=== PATIENT | female | born 1980 | race Two or more races ===

== ENCOUNTER 2024-11-22 04:41 | Observation (INO) | payer OTHER, SELFPAY ==
[2024-11-21 17:09] VITALS: BP 114/92
[2024-11-21 17:56] LABS: HCG, Serum Qualitative Screen Negative
[2024-11-21 18:04] LABS: ALT (SGPT) 31 U/L (0-35); AST (SGOT) 27 U/L (14-36); Albumin 4.7 g/dl (3.5-5.0); Alkaline Phosphatase 60 U/L (38-126); Blood Urea Nitrogen 11 mg/dl (7-17); Calcium 9.9 mg/dl (8.4-10.2); Carbon Dioxide 21 mmol/L (22-30); Chloride 107 mmol/L (98-107); Glucose 123 mg/dl (70-99); Potassium 4.2 mmol/L (3.5-5.1); Sodium 140 mmol/L (135-145); Total Bilirubin 0.5 mg/dl (0.2-1.3); Total Protein 7.9 g/dl (6.3-8.2); eGFR > 60.00
[2024-11-21 18:05] LABS: Lipase 44 U/L (23-300)
[2024-11-21 18:16] LABS: % Basophils 0.3 % (0-2); % Eosinophils 1.9 % (0-6); % Immature Granulocytes 0.9 % (0-0.5); % Lymphocytes 14.8 % (20.5-51.1); % Monocytes 6.1 % (1.7-9.3); Absolute Eosinophils 0.2 10^3/uL (0-0.7); Absolute Immature Granulocytes 0.1 10^3/uL (0-0.05); Absolute Lymphocytes 1.8 10^3/uL (1.2-3.4); Absolute Monocytes 0.7 10^3/uL (0.1-0.6); Hematocrit 37.9 % (37.0-47.0); Hemoglobin 12.6 g/dL (12.0-16.0); Mean Corp Hgb Conc. 33.2 g/dL (33.0-37.0); Mean Corpuscular Hgb 28.4 pg (27.0-31.0); Mean Corpuscular Volume 85.6 fL (81.0-99.0); Mean Platelet Volume 12.4 fL (7.4-10.4); Nucleated Red Blood Cells % 0 %; Platelet Count 154 10^3/uL (130-400); Red Blood Cell Count 4.43 10^6/uL (4.20-5.40); Red Cell Dist. Width 13.2 % (11.5-14.5); White Blood Cell Count 11.9 10^3/uL (4.8-10.8)
[2024-11-21 22:21] VITALS: BP 142/72; BMI 29.8
[2024-11-21 22:26] LABS: Urine Albumin 2+ (Neg - Trace); Urine Bilirubin Negative (Negative); Urine Character Clear (Clear); Urine Color Yellow; Urine Glucose Negative (Negative); Urine Ketone 3+ (Negative); Urine Leukocyte 3+ (Negative); Urine Nitrite Negative (Negative); Urine Occult Blood 4+ (Negative); Urine Specific Gravity 1.025 (<1.030); Urine Urobilinogen Negative (Neg - 1+)
[2024-11-21 22:46] LABS: Urine Squamous Cell >30 /LPF (Few)
[2024-11-21 22:47] LABS: Urine Bacteria Moderate (Negative); Urine White Cell 16-20 /HPF (0-5); Urine Yeast Few (Negative)
--- NOTE | 2024-11-21 22:52 | ED.GENMED ---
History of Present Illness
General
Chief Complaint: Abdominal Pain
Source: patient and spouse
Exam Limitations: none
Time Seen by Provider: 11/21/24 22:36
Nursing documentation reviewed up to this point in time: agreed with
History of Present Illness
History of Present Illness:
44-year-old female history of kidney stones, history ovarian cyst presents with left flank left lower abdominal pain onset a day or so ago she has had chills and nausea, vomited here no prior abdominal surgeries,
Past History
Past History
ED Past Medical History: Other (Ovarian cyst, kidney stone)
ED Past Surgical History: Negative Appendectomy
Social History
Tobacco: Non-smoker
Alcohol: None
Drug: None
Personal:
Living: with family
Employment: Employed
Review of Systems
Review of Systems
All Other Systems: Not applicable
Constitutional: Reports chills; Denies fever
EENT: Reports no symptoms
Respiratory: Reports no symptoms
Cardiac: Reports no symptoms
ABD/GI: Reports abdominal pain, nausea and vomiting
: Reports no symptoms
Musculoskeletal: Reports no symptoms
Phy Exam
Physical Exam
Physical Exam:
Physical Exam
General: 44 female looks uncomfortable
Neck: No jaundice
Heart: s1/s2 regular rate and rhythm, no murmur. equal radial pulses.
Lungs: no acute respiratory distress. clear bilaterally
Abdomen: Tender in the left flank and left lower
Neuro: alert and oriented. no focal neurological deficits
Skin: no rash
Psychiatric: well kept. interactive and cooperative
Extremities: no edema.
Course
Orders/Labs/Results
Orders:
Orders
11/21/24 17:11
Test Result ONCE
11/21/24 17:32
Complete Blood Count/With Diff Urgent
Comprehensive Metabolic Panel Urgent
HCG, Serum Qualitative Screen Urgent
Lipase Urgent
11/21/24 22:18
Urinalysis Reflex To Culture Urgent
Date Specimen was Collected: 11/21/24
Time Specimen was Collected: 21:56
Urine Microscopic Reflex Cult Urgent
Urine Culture Urgent
YESSI Source: U
Specimen Description:
Date Specimen was Collected: 11/21/24
Time Specimen was Collected: 21:56
11/21/24 22:46
CT Abd/pel Without Iv Or Oral Urgent
Comment:
Reason For Exam: lef tside dpain
0.9% Sodium Chloride 1000 ml [Nss] 1,000 ml IV BOLUS
Ketorolac [Toradol] 30 mg IV NOW STA
Ondansetron Injectable [Zofran] 4 mg IV NOW STA
11/22/24 00:41
HYDROmorphone [Dilaudid] 1 mg IV NOW STA
11/22/24 01:27
Add On- LAB Urgent
Tests Added?: urine culture
11/22/24 01:51
CefTRIAXone [Rocephin] 1,000 mg IV NOW STA
11/22/24 02:21
0.9% Sodium Chloride 500 ml [Nss] 1,000 ml IV BOLUS
11/22/24 02:22
HYDROmorphone [Dilaudid] 1 mg IV NOW STA
NSS 1000mL Bolus WIDE OPEN 0.9% Sodium Chloride 1000 ml [Nss] 1,000 ml IV BOLUS
Ondansetron Injectable [Zofran] 4 mg IV NOW STA
Abnormal Lab Results
11/21/24 11/21/24
17:32 22:18
WBC 11.9 H 10^3/uL
(4.8-10.8)
MPV 12.4 H fL
(7.4-10.4)
Abs Immat Gran (auto) 0.1 H 10^3/uL
(0-0.05)
Absolute Neuts (auto) 9.0 H 10^3/uL
(1.4-6.5)
Absolute Monos (auto) 0.7 H 10^3/uL
(0.1-0.6)
Immature Gran % 0.9 H %
(0-0.5)
Neutrophils % 76.0 H %
(42.2-75.2)
Lymphocytes % 14.8 L %
(20.5-51.1)
Carbon Dioxide 21 L mmol/L
(22-30)
Glucose 123 H mg/dl
(70-99)
Urine Ketones 3+ A
(Negative)
Ur Occult Blood Reflex 4+ A
(Negative)
Leukocyte Esterase Rfl 3+ A
(Negative)
Urine RBC 11-15 A /HPF
(0-2)
Urine WBC (Reflex) 16-20 A /HPF
(0-5)
Urine Bacteria (Reflex) Moderate A
(Negative)
Urine Yeast Few A
(Negative)
Urine Albumin (Reflex) 2+ A
(Neg - Trace)
11/21/24 17:32
11/21/24 17:32
Vital Signs
Initial and Last Documented VS:
Initial Vital Signs
Temp Pulse Resp BP Pulse Ox
97.9 F 79 16 114/92 100
11/21/24 17:09 11/21/24 17:09 11/21/24 17:09 11/21/24 17:09 11/21/24 17:09
Last Documented Vital Signs
Temp Pulse Resp BP Pulse Ox
97.9 F 82 16 127/66 100
11/21/24 17:09 11/22/24 02:16 11/22/24 02:16 11/22/24 02:16 11/22/24 02:16
MDM/Problems Addressed
Differential Diagnosis Includes:
Renal colic ovarian cyst diverticulitis
MDM/Problems Addressed:
Flank pain
*Radiology
Radiology exam reviewed: radiology read reviewed
*Pulse Oximetry
SaO2: 100
Oxygen Mode of Delivery: Room air
Patient hypoxic: no
*Critical Care Note
Total Time (30-74mins, 75-104mins- exclusive of procedures): Not Applicable
Update Note
Update Note:
1:[address] scan report noted patient smiling states she feels much better, has no pain further questioning about her potential infectious symptoms she has had no fever she believes she did have some chills earlier today, in the setting of pain
Urinalysis white count are noted looks to be contaminated specimen will start on antibiotics empirically, reviewed inpatient versus outpatient management, like to watch her here little bit longer repeat her vital signs to be sure she is not spiking
a fever patient clearly instructed to return to the ER if she spikes any fever has persistent nausea vomiting or any other concerns
2:15 AM reevaluation patient with recurrent pain at this point I believe would prudent keep her in the hospital for close monitoring trial of passage consideration for specialty consultation
ED Attending Note
-
Portions of this chart may have been created with voice recognition software.� Occasional wrong word or��sound alike� substitutions may have occurred due to the inherent limitations of voice recognition software.
Discharge Plan
Departure
Patient Disposition: Admit
Date of Disposition: 11/22/24
Time of Disposition: 02:05
Admit to: Med/Surg
Presentation/result/management discussed w/ accepting MD/DO: Hospitalist
Patient with high blood pressure during this ER visit?: No
Condition: Good
Covid-19: Not Applicable
Discharge Problem:
Kidney stone on left side
Instructions: Kidney Stones (DC)
Prescriptions:
New
amoxicillin-pot clavulanate 875-125 mg tablet
1 tab PO BID Qty: 20 0RF
oxycodone-acetaminophen [Percocet] 5-325 mg tablet
1 tab PO Q4HPRN PRN (Reason: pain) Qty: 14 0RF
ibuprofen 600 mg tablet
600 mg PO Q6H PRN (Reason: Pain) Qty: 20 0RF
Referrals:
Valeriy Goldstein MD [Active, Urology] - Next open appointment
Ar Kuo MD [Family Provider, Family Practice]
Activity Restrictions/Additional Instructions:
Drink plenty of fluids, antibiotics as prescribed
Ibuprofen every 6 hours for pain, acetaminophen or Percocet every 4 hours for pain(Do not exceed #8 in any 24-hour period as they both contain acetaminophen)
RETURN to the ER immediately if persistent pain, persistent nausea vomiting or any fevers
Interventions
Interventions:
*Risk Screen - Suicide Last Done: 11/21/24 17:11
*General Assessment Last Done: 11/21/24 22:21
*Neglect/Abuse Screening Last Done: 11/21/24 17:11
TF-Pirajj-Oymtyivwpl Assessment Last Done: 11/21/24 22:21
Discharge Date and Time
Print Language: BHUTANESE
[2024-11-21] MEDS: ZOFRAN 4 MG IV (22:54)
[2024-11-21] MEDS: TORADOL 30 MG IV (22:54)
[2024-11-21] MEDS: NSS 1000 IV (22:54)
[2024-11-21 23:00] VITALS: BP 162/83
[2024-11-22] MEDS: DILAUDID 1 MG IV ×2 (00:53→02:42)
[2024-11-22] MEDS: ROCEPHIN 1000 MG IV (02:09)
[2024-11-22 02:16] VITALS: BP 127/66
[2024-11-22] MEDS: NSS 1000 IV (02:21)
[2024-11-22] MEDS: FLUSH (NSS) 1 FLUSH IV (02:43)
[2024-11-22] MEDS: ZOFRAN 4 MG IV (02:43)
--- NOTE | 2024-11-22 03:34 | HPS.HSE ---
Family Physician
-
Family Physician: Ar Kuo
Chief Complaint
-
Abdominal pain
History of Present Illness
This is a 44-year-old female with past medical history of nephrolithiasis who presents to the emergency department with abdominal pain.
Patient reports about 2 days of abdominal discomfort that intensified over the last 24 hours with associated nausea and vomiting. She denies flank pain, fevers chills, dysuria, lightheadedness or dizziness. Patient denies any hematuria. She
denies any diarrhea.
In the Emergency Department patient was afebrile, blood pressure was 120/60 with a pulse of 80 and she was satting 100% on room air.
White count was 11.9, CBC otherwise unremarkable. Electrolytes, BUN, creatinine and LFTs all within normal limits.
CT of the abdomen pelvis showing a 3.5 mm obstructing calculus in the proximal left ureter with mild left hydronephrosis, there is also bilateral renal calculi and suspicious for cystitis
Medical History
Past Medical History
Past Medical History: Reports Other (nephrolithiasis)
Past Surgical History: Reports None
Social History
Tobacco: Non-smoker
Alcohol: None
Drug: None
Personal:
Living: With Family
Family History
Family History: Not pertinent
Allergies / Home Medications
Allergies reflects when Allergies were last updated in [email or web address].
Home Medications with original date entered in [email or web address]
Allergy/Medication List:
Allergies
Allergy/AdvReac Type Severity Reaction Status Date / Time
No Known Allergies Allergy Unverified 11/21/24 17:11
Home Medications
No Meds [No Current Medications] 11/22/24
Review of Systems
-
Constitutional: Reports No Symptoms
EENT: Reports No Symptoms
Respiratory: Reports No Symptoms
Cardiac: Reports No Symptoms
Abdomen/GI: Reports Abdominal Pain, Nausea and Vomiting
: Reports No Symptoms
Musculoskeletal: Reports No Symptoms
Skin: Reports No Symptoms
Neurological: Reports No Symptoms
Endocrine: Reports No Symptoms
Hematologic/Lymphatic: Reports No Symptoms
Psych: Reports No Symptoms
Physical Exam
Vital Signs
Vital Signs
Temp Pulse Resp BP Pulse Ox
97.9 F 82 16 127/66 100
11/21/24 17:09 11/22/24 02:16 11/22/24 02:16 11/22/24 02:16 11/22/24 02:16
Physical Exam
General: Well Developed, Well Nourished and No Apparent Distress
HEENT: NormoCephalic, Moist mucous membranes and Atraumatic
Respiratory: Clear
Cardiac: S1/S2 and Regular Rhythm; No Murmur or Rub
GI: Soft, Non Tender, Non Distended and Normal Bowel Sounds; No Organomegaly
Rectal: Deferred by Provider
Musculoskeletal: No Clubbing, No Cyanosis and No Edema
Skin: No Rash
Neuro: Nonfocal/grossly intact
Laboratory Results
-
11/21/24 17:32
11/21/24 17:32
Laboratory Results
Total Bilirubin 0.5 mg/dl (0.2-1.3) 11/21/24 17:32
AST 27 U/L (14-36) 11/21/24 17:32
ALT 31 U/L (0-35) 11/21/24 17:32
Alkaline Phosphatase 60 U/L (38-126) 11/21/24 17:32
Lipase 44 U/L (23-300) 11/21/24 17:32
Impression/Plan
-
IMPRESSION:
44-year-old female with past medical history of nephrolithiasis and prior episodes of passing kidney stones presents to the emergency department with 2 days of abdominal pain. Initially it was minimal but then intensified over the last 24 hours
with associated nausea vomiting. She denied any flank pain. She denies any dysuria. She denied having fevers or chills. UA is equivocal but likely contaminated and negative. There is some mild hydronephrosis but no significant signs of
pyelonephritis on the CT scan. She has a 3.5 mm and obstructing stone in the proximal left ureter ureter. Creatinine is normal.
PLAN:
Left-sided obstructing urolithiasis with no signs of sepsis. Likely not infected stone
[facility]
-Continue IV fluids
-Urine cultures
-Started IV ceftriaxone for now
-Tamsulosin
-Toradol
-Strain urine
-Discussed with urology, likely to pass the stone spontaneously and requires no intervention will probably be discharged with follow-up
-Urology to see patient in a.m., will keep n.p.o. for now
DVT prophylaxis�SCDs
CODE STATUS�full code
[2024-11-22] MEDS: LR 1000 IV (05:59)
[2024-11-22 06:24] LABS: Hematocrit 33.5 % (37.0-47.0); Hemoglobin 11.4 g/dL (12.0-16.0); Mean Corpuscular Hgb 29.1 pg (27.0-31.0); Mean Corpuscular Volume 85.5 fL (81.0-99.0); Mean Platelet Volume 12.1 fL (7.4-10.4); Platelet Count 173 10^3/uL (130-400); Red Blood Cell Count 3.92 10^6/uL (4.20-5.40); Red Cell Dist. Width 13.9 % (11.5-14.5); White Blood Cell Count 14.4 10^3/uL (4.8-10.8)
[2024-11-22 06:41] LABS: Blood Urea Nitrogen 17 mg/dl (7-17); Calcium 8.8 mg/dl (8.4-10.2); Carbon Dioxide 22 mmol/L (22-30); Chloride 111 mmol/L (98-107); Estimated Creatinine Clearance 94 ml/min; Glucose 117 mg/dl (70-99); Magnesium 1.7 mg/dl (1.6-2.3); Potassium 4.3 mmol/L (3.5-5.1); Sodium 142 mmol/L (135-145); eGFR > 60.00
[2024-11-22] MEDS: FLOMAX 0.4 MG PO (07:49)
[2024-11-22 07:53] VITALS: BP 102/51
--- NOTE | 2024-11-22 07:58 | W.PN.HOSP.TC ---
Today's Communication/Plan
-
Adequate pain control
Adequate hydration
Tamsulosin
Assessment / Plan
Assessment / Plan
Assessment
44-year-old female with past medical history of nephrolithiasis presents to the emergency department reporting abdominal pain, nausea/vomiting.
Plan
#Left ureteral calculus
Patient is not septic at presentation
AFVSS
White count trended up to 14.4
UA�contaminated, will repeat with reflex to culture
No dysuria, suprapubic tenderness
CT of the abdomen pelvis with evidence of a 3.5 mm obstructing calculus in the proximal left ureter with mild left hydronephrosis, there is also bilateral renal calculi and suspicious for cystitis.
Patient started on IV ceftriaxone, will transition to Cefdinir 300 mg , BID x 5 days.
Continue tamsulosin
Continue Toradol
Adequate hydration
Strain urine
Urology consulted�no intervention at this time
Patient is stable�discharge with outpatient urology follow-up, or if symptoms worsen.
Full code
Anticipated Discharge: Today
Subjective/Interval History
-
Date of Service: November 22, 2024
Patient reports mild pain in the left lumbar region. Reports no nausea/vomiting.
Objective Data
-
Labs:
Laboratory Results
11/22/24
06:12
WBC 14.4 H
Hgb 11.4 L
Hct 33.5 L
Plt Count 173
Sodium 142
Potassium 4.3
Chloride 111 H
Carbon Dioxide 22
BUN 17
Creatinine 0.8
Glucose 117 H
Calcium 8.8
Vital Signs:
Vital Signs
Temp Pulse Resp BP Pulse Ox
98.2 F 71 15 102/51 98
11/22/24 07:53 11/22/24 07:53 11/22/24 07:53 11/22/24 07:53 11/22/24 07:53
Review of Systems
-
All other systems: Reviewed and negative (Except as mentioned above)
Physical Exam
-
General: Well Developed, Well Nourished and No Apparent Distress
HEENT: Normocephalic and Atraumatic
Respiratory: Clear to Auscultation
Cardiac: Regular Rhythm and S1/S2
GI: Soft, Nontender, Nondistended and Normal Bowel Sounds
Genito-urinary: No Costovertebral Tender and Other (No suprapubic tenderness)
Skin: Warm and Dry
Neuro: Awake, Alert, Oriented and AO x 3
Psych: Calm
[2024-11-22] MEDS: TORADOL 10 MG IV (09:21)
[2024-11-22] MEDS: TYLENOL 650 MG PO (10:37)
[2024-11-22 10:55] LABS: Urine Albumin 2+ (Neg - Trace); Urine Bilirubin Negative (Negative); Urine Character Slightly Cloudy (Clear); Urine Color Amber; Urine Glucose Negative (Negative); Urine Ketone 1+ (Negative); Urine Leukocyte 1+ (Negative); Urine Nitrite Negative (Negative); Urine Occult Blood 1+ (Negative); Urine Urobilinogen Negative (Neg - 1+)
--- NOTE | 2024-11-22 11:27 | W.PN.URO.CBU ---
Today's Communication / Plan
-
give strainer please
Assessment / Plan
-
passable stone pt non toxivc no pain x 8 hours will start flomax increase fluids and home call or return if ferv child or too much pain try flomax
Diagnosis
-
Date of Service: November 22, 2024
-
Patient Diagnosis:prox 3 mm stone no fevr chills no nausea no pain rxs x 8 hours
Post Op Day:
Subjective
-
feels h-[baseline
Objective
-
Vital Signs
Temp Pulse Resp BP Pulse Ox
98.2 F 71 15 102/51 96
11/22/24 07:53 11/22/24 07:53 11/22/24 07:53 11/22/24 07:53 11/22/24 08:56
Laboratory Results
11/22/24 06:12
11/22/24 06:12
Review of Systems
-
: Flank Pain
Physical Exam
-
General - well developed, well nourished, no acute distress non toxic
Chest - clear bilaterally
Abdomen - soft, non-tender, positive bowel sounds, no CVAT, no incisional pain or distention
Genitalia - normal
Rectal - normal
Skin - warm & dry with no rash
Neuro - AOx3, no motor deficits
Extremities - no clubbing, no cyanosis, no edema
Incision - clean, dry
Dressing - clean, dry, intact
Care Review
Data Reviewed
Discussed with: Hospitalist and Nursing
CT Scan: Image Pers Reviewed
[2024-11-22 11:38] LABS: Urine Squamous Cell >30 /LPF (Few)
[2024-11-22 11:39] LABS: Urine Amorphous Seen; Urine Bacteria Moderate (Negative)
[2024-11-22 11:40] LABS: Urine Red Blood Cell 0-2 /HPF (0-2); Urine White Cell 0-2 /HPF (0-5)
[2024-11-22 11:41] LABS: Urine Urothelial Cell 0-2 /LPF (FEW)
--- NOTE | 2024-11-22 11:47 | PTCARENOTE ---
Pt had increasing pain - relieved w/ toradol and tylenol. Pt ate breakfast and tolerated well - denies n/v. Voiding w/o difficulty.
--- NOTE | 2024-11-22 13:44 | CM ---
CM reviewed chart and met with pt bedside in ED. IA completed, OBS form signed. Lives with and children in 2 story home, 2 PANFIL[address], first floor half BA, second floor BR/full bath.
Independent in ADLs, personal care, driving ans ambulation at baseline. No DME in home.
No hx VN/SNF
PCP: Ar Kuo
Pharmacy: [facility]
Discharge plan: Anticipate home, no needs
[2024-11-22 14:41] VITALS: BP 122/58
--- NOTE | 2024-11-22 14:42 | PTCARENOTE ---
Pt pain free. Ate another food tray w/o issue. Understands home care instructions
--- NOTE | 2024-11-22 17:36 | W.DCSUMMARY ---
Documented by User: Sade Chinchilla MD, Resident 11/22/24 17:46
Discharge Summary
Discharge Data
Date of Admission: 11/22/24
Date of Discharge: 11/22/24
-
Pending Results: Yes
Additional Pending Results:
Urine culture
Hospital Course
Discharging Physician : Dr. Dotson, Dr. Stuart
Disposition : Home
Principal Discharge diagnosis : Left ureteral calculus
Hospital Course : 44-year-old female with past medical history of nephrolithiasis presented to the ER reporting abdominal pain, nausea/vomiting from the past day. In the ER patient was afebrile, BP�120s/60, heart rate�80, WBC 11.9 >>14.
Electrolytes, BUN/creatinine and LFTs within normal limits. CT showed evidence of 3.5 mm obstructing calculus in the proximal left ureter with mild hydronephrosis, bilateral renal calculi. Patient was not septic at presentation, started on IV
fluids, IV ceftriaxone. Urinalysis, leuk esterase positive, no nitrates. Urology consulted, who recommended no intervention at this time. Pain adequately controlled. Patient is hemodynamically stable to be discharged home. Advised follow-up
with urology in a week/before if symptoms worsen. Discharge medications - 2-day course of cefdinir, tamsulosin for 1 week.
Important imaging findings :
CT abdomen pelvis�11/21/2024�
1. 4 mm calculus within the proximal left ureter causing mild left hydronephrosis with associated mild inflammatory changes.
2. Couple of small nonobstructive calculi within the lower pole of the right kidney.
3. 3.3 cm low-attenuation cyst within the right adnexa.
Discharge Plan
-
Patient Disposition: Home (Routine Discharge)
Discharge Diagnosis/Procedures: Left ureterolithiasis
Condition: Good
Diet: No restrictions
Additional Diets: Drink 64 ounces of water daily
Activity: As tolerated
Driving Restrictions: As prior to admission
Bathing Restrictions: None
Blood Work: None
Others Tests: None
Referrals:
Edu Rios MD [Active, Internal Medicine]
Referral Note: come back to er if sever e pain or fever chills other walker increase fluids strain urine call Dr Goldstein [phone] urologist to set up follow up
Valeriy Goldstein MD [Active, Urology]
Ar Kuo MD [Family Provider, [facility]]
Additional Discharge Medication Instructions: Continue cefdinir 300 mg every 12 hours for 2 days after discharge, to complete 3 days total of antibiotics
Take tamsulosin 0.4 mg daily for 7 days. Speak to urologist or PCP about further treatment with tamsulosin
Prescriptions:
New
tamsulosin 0.4 mg Capsule
0.4 mg PO DAILY 7 Days Qty: 7 0RF
cefdinir 300 mg capsule
300 mg PO Q12H 2 Days Qty: 4 0RF
Discharge Orders:
Discharge Patient (As Directed); Ordered 11/22/24
Ordered By: Efren Dotson
Discharge Date and Time
Discharge Date/Time: 11/22/24 14:42
Print Language: BELARUSIAN

Documented by User: Efren Dotson DO 11/22/24 18:29
Discharge Summary
Discharge Data
Date of Admission: 11/22/24
Date of Discharge: 11/22/24
Discharge Plan
-
Patient Disposition: Home (Routine Discharge)
Discharge Diagnosis/Procedures: Left ureterolithiasis
Condition: Good
Diet: No restrictions
Additional Diets: Drink 64 ounces of water daily
Activity: As tolerated
Driving Restrictions: As prior to admission
Bathing Restrictions: None
Blood Work: None
Others Tests: None
Referrals:
Edu Rios MD [Active, Internal Medicine]
Referral Note: come back to er if sever e pain or fever chills other walker increase fluids strain urine call Dr Goldstein [phone] urologist to set up follow up
Valeriy Goldstein MD [Active, Urology]
Ar Kuo MD [Family Provider, Family Practice]
Additional Discharge Medication Instructions: Continue cefdinir 300 mg every 12 hours for 2 days after discharge, to complete 3 days total of antibiotics
Take tamsulosin 0.4 mg daily for 7 days. Speak to urologist or PCP about further treatment with tamsulosin
Prescriptions:
New
tamsulosin 0.4 mg Capsule
0.4 mg PO DAILY 7 Days Qty: 7 0RF
cefdinir 300 mg capsule
300 mg PO Q12H 2 Days Qty: 4 0RF
Discharge Orders:
Discharge Patient (As Directed); Ordered 11/22/24
Ordered By: Efren Dotson
Discharge Date and Time
Discharge Date/Time: 11/22/24 14:42
Print Language: BELARUSIAN
== END 2024-11-22 14:42 | disposition home or self-care (01) ==
LOC: ED 04:41
PROVIDERS: Emergency Medicine; Student in an Organized Health Care Education/Training Program; ADMITTING PHYSICIAN Internal Medicine; ATTENDING PHYSICIAN Internal Medicine; EMERGENCY PHYSICIAN Emergency Medicine; FAMILY PHYSICIAN Family Medicine
DX: N13.2 Hydronephrosis with renal and ureteral calculous obstruction (principal); R10.32 Left lower quadrant pain; R68.83 Chills (without fever); N83.291 Other ovarian cyst, right side; R11.2 Nausea with vomiting, unspecified; Z87.442 Personal history of urinary calculi
CPT/HCPCS: 74176; 80048; 80053; 81003; 81015; 83690; 83735; 84703; 85025; 85027; 87086; 96361; 96374; 96375; 96376; 99284; G0378